=== PATIENT | female | born 1940 | race Native Hawaiian/Other Pacific Islander ===

== ENCOUNTER 2016-11-27 08:09 | Outpatient (CLI) | payer OTHER, BC ==
[~2016-11-27 08:09] MED LIST: DIAZ5TAB20 PO; DULO60CA2 OR; ESTR0.45 PO; LISI10TA11 PO; METO50TA27 PO; NEURONTIN800 MG PO; SIMV10TA PO
== END 2016-11-27 09:00 | disposition home or self-care (01) ==
LOC: LABW 08:09
PROVIDERS: Internal Medicine Cardiovascular Disease
DX: E78.4 Other hyperlipidemia (principal); Z09 Encounter for follow-up examination after completed treatment for conditions other than malignant neoplasm
CPT/HCPCS: 36415; 80061; 80076

== ENCOUNTER 2016-12-01 22:54 | Emergency (ER) | payer OTHER, BC ==
[~2016-12-01] VITALS: Ht 157.5 cm; Wt 74.8 kg
[2016-12-02 00:10] LABS: PLATELET COUNT 225 K/uL (152-353)
[2016-12-02 00:29] LABS: POTASSIUM 4.4 mmol/L (3.6-5.2)
[2016-12-02 00:35] LABS: PARTIAL THROMBOPLASTIN TIME 24.3 SECONDS (24.5-33.6)
[2016-12-02 00:53] VITALS: BP 157/66; TEMP 98
== END 2016-12-02 00:50 | disposition home or self-care (01) ==
LOC: ED 22:54
DX: R07.89 Other chest pain (principal); R06.09 Other forms of dyspnea
CPT/HCPCS: 36415; 80053; 82550; 84484; 85027; 85610; 85730; 86318; 93005; 99283

== ENCOUNTER 2017-08-11 10:06 | Outpatient (CLI) | payer OTHER, BC | END 2017-08-11 19:40 | disposition home or self-care (01) | LOC: MAMMO 10:06 | DX: Z12.31 Encounter for screening mammogram for malignant neoplasm of breast (principal) ==

== ENCOUNTER 2018-03-11 06:56 | Outpatient (CLI) | payer OTHER, BC | END 2018-03-11 19:15 | disposition home or self-care (01) | LOC: LABW 06:56 | PROVIDERS: Internal Medicine Cardiovascular Disease | DX: E78.5 Hyperlipidemia, unspecified (principal); Z09 Encounter for follow-up examination after completed treatment for conditions other than malignant neoplasm | CPT/HCPCS: 36415; 80061 ==

== ENCOUNTER 2018-08-14 07:08 | Outpatient (CLI) | payer OTHER, BC | END 2018-08-14 18:54 | disposition home or self-care (01) | LOC: LABW 07:08 | PROVIDERS: Internal Medicine Cardiovascular Disease | DX: E78.5 Hyperlipidemia, unspecified (principal); Z09 Encounter for follow-up examination after completed treatment for conditions other than malignant neoplasm | CPT/HCPCS: 36415; 80061; 80076 ==

== ENCOUNTER 2018-08-19 14:18 | Outpatient (CLI) | payer OTHER, BC | END 2018-08-19 23:05 | disposition home or self-care (01) | LOC: MAMMO 14:18 | DX: Z12.31 Encounter for screening mammogram for malignant neoplasm of breast (principal) ==

== ENCOUNTER 2018-10-28 08:40 | Outpatient (CLI) | payer OTHER, BC | END 2018-10-28 20:38 | disposition home or self-care (01) | LOC: CT 08:40 | DX: G44.329 Chronic post-traumatic headache, not intractable (principal) ==

== ENCOUNTER 2018-12-24 15:34 | Emergency (ER) | payer OTHER, BC ==
[~2018-12-24] VITALS: Ht 162.6 cm; Wt 74.8 kg
[2018-12-24 15:47] VITALS: BP 153/85; TEMP 98.1
== END 2018-12-24 18:15 | disposition home or self-care (01) ==
LOC: ED 15:34
DX: S00.83XA Contusion of other part of head, initial encounter (principal); S60.212A Contusion of left wrist, initial encounter; S70.02XA Contusion of left hip, initial encounter; W01.198A Fall on same level from slipping, tripping and stumbling with subsequent striking against other object, initial encounter; Y92.091 Bathroom in other non-institutional residence as the place of occurrence of the external cause
CPT/HCPCS: 99283

== ENCOUNTER 2019-02-01 07:12 | Outpatient (CLI) | payer OTHER, BC | END 2019-02-01 22:44 | disposition home or self-care (01) | LOC: LABW 07:12 | PROVIDERS: Internal Medicine Cardiovascular Disease | DX: Z09 Encounter for follow-up examination after completed treatment for conditions other than malignant neoplasm (principal); E78.49 Other hyperlipidemia | CPT/HCPCS: 36415; 80061; 80076 ==

== ENCOUNTER 2019-02-03 08:44 | Outpatient (CLI) | payer OTHER, BC | END 2019-02-03 23:41 | disposition home or self-care (01) | LOC: MRI 08:44 | DX: M47.22 Other spondylosis with radiculopathy, cervical region (principal) ==

== ENCOUNTER 2019-03-29 07:47 | Outpatient (CLI) | payer OTHER, BC | END 2019-03-29 22:35 | disposition home or self-care (01) | LOC: RAD 07:47 | DX: Z13.820 Encounter for screening for osteoporosis (principal); N95.8 Other specified menopausal and perimenopausal disorders ==

== ENCOUNTER 2020-01-11 07:18 | Outpatient (CLI) | payer OTHER, BC | END 2020-01-11 21:23 | disposition home or self-care (01) | LOC: LABW 07:18 | PROVIDERS: Internal Medicine Cardiovascular Disease | DX: E78.49 Other hyperlipidemia (principal) | CPT/HCPCS: 36415; 80061; 80076 ==

== ENCOUNTER 2020-03-26 15:20 | Emergency (ER) | payer OTHER, BC ==
[~2020-03-26] VITALS: Ht 162.6 cm; Wt 77.1 kg
[2020-03-26] MEDS ORDERED: GRALISE300 MG PO (15:46)
[2020-03-26] MEDS ORDERED: FIBER LAXATV625 MG PO (15:47)
[2020-03-26] MEDS ORDERED: PHEN200T3 PO (15:48)
[2020-03-26] MEDS ORDERED: HYDROCHLOROT12.5 M1 PO (15:48)
[2020-03-26] MEDS ORDERED: DICLOFENAC POTA50 MG PO (15:49)
[2020-03-26] MEDS ORDERED: ESOMEPRAZOLE MA40 MG PO (15:50)
[2020-03-26] MEDS ORDERED: RELAFEN DS1000 MG PO (15:51)
[2020-03-26] MEDS ORDERED: SIMV10TA PO (15:51)
[2020-03-26] MEDS ORDERED: TRAMADOL HYDROC50 MG PO (15:52)
[2020-03-26 16:49] LABS: PLATELET COUNT 235 K/uL (152-353)
[2020-03-26 19:30] VITALS: BP 135/48; TEMP 98
== END 2020-03-26 19:45 | disposition home or self-care (01) ==
LOC: ED 15:34
PROVIDERS: Emergency Medicine Emergency Medical Services
PROC: 0T9B70Z Drainage of Bladder with Drainage Device, Via Natural or Artificial Opening (ICD-10-PCS; principal; 2020-03-26)
DX: K59.09 Other constipation (principal); J18.9 Pneumonia, unspecified organism
CPT/HCPCS: 36415; 51702; 80053; 81000; 82272; 83605; 83690; 84484; 85027; 87040; 93005; 96360; 96365; 99284; J0456

== ENCOUNTER 2020-11-21 07:49 | Outpatient (CLI) | payer BC, OTHER ==
[~2020-11-21 07:49] MED LIST changes: +DICLOFENAC POTA50 MG PO; +ESOMEPRAZOLE MA40 MG PO; +FIBER LAXATV625 MG PO; +GRALISE300 MG PO; +HYDROCHLOROT12.5 M1 PO; +PHEN200T3 PO; +RELAFEN DS1000 MG PO; +TRAMADOL HYDROC50 MG PO
== END 2020-11-21 19:40 | disposition home or self-care (01) ==
LOC: LABW 07:49
PROVIDERS: ATTEND Internal Medicine Cardiovascular Disease
DX: E78.49 Other hyperlipidemia (principal); Z09 Encounter for follow-up examination after completed treatment for conditions other than malignant neoplasm
CPT/HCPCS: 36415; 80061; 80076

== ENCOUNTER 2021-07-11 07:02 | Outpatient (CLI) | payer BC, OTHER | END 2021-07-11 19:43 | disposition home or self-care (01) | LOC: LABW 07:02 | PROVIDERS: ATTEND Internal Medicine Cardiovascular Disease | DX: E78.49 Other hyperlipidemia (principal); Z09 Encounter for follow-up examination after completed treatment for conditions other than malignant neoplasm | CPT/HCPCS: 36415; 80061; 80076 ==

== ENCOUNTER 2021-08-10 11:39 | Emergency (ER) | payer BC, OTHER ==
[~2021-08-10] VITALS: Ht 162.6 cm; Wt 77.1 kg
[2021-08-10 11:52] VITALS: TEMP 97.8
[2021-08-10 12:17] LABS: PLATELET COUNT 238 K/uL (152-353)
[2021-08-10 12:29] LABS: POTASSIUM 4.4 mmol/L (3.6-5.2)
[2021-08-10 12:40] LABS: PARTIAL THROMBOPLASTIN TIME 22.3 SECONDS (24.5-33.6)
[2021-08-10 13:15] VITALS: BP 169/72
== END 2021-08-10 13:15 | disposition home or self-care (01) ==
LOC: ED 11:39
PROVIDERS: Hospitalist
DX: K29.70 Gastritis, unspecified, without bleeding (principal); K59.09 Other constipation
CPT/HCPCS: 36415; 80053; 83690; 84484; 85027; 85610; 85730; 93005; 96360; 96375; 99284; J2405; J3490

== ENCOUNTER 2021-08-19 21:10 | Emergency (ER) | payer BC, OTHER ==
[~2021-08-19] VITALS: Ht 162.6 cm; Wt 77.1 kg
[2021-08-19 21:59] LABS: PLATELET COUNT 252 K/uL (152-353)
[2021-08-19 22:05] LABS: POTASSIUM 3.9 mmol/L (3.6-5.2)
[2021-08-19 23:07] VITALS: BP 159/45; TEMP 98.1
== END 2021-08-19 23:07 | disposition home or self-care (01) ==
LOC: ED 21:10
PROVIDERS: Emergency Medicine Emergency Medical Services
DX: N39.0 Urinary tract infection, site not specified (principal)
CPT/HCPCS: 36415; 80053; 81000; 85027; 87086; 87088; 96365; 99284; J0696

== ENCOUNTER 2021-09-17 09:05 | Outpatient (CLI) | payer BC, OTHER | END 2021-09-17 18:47 | disposition home or self-care (01) | LOC: CT 09:05 | PROVIDERS: ATTEND Nurse Practitioner Family | DX: R10.84 Generalized abdominal pain (principal) | CPT/HCPCS: 36415; 82565; 84520; Q9963 ==

== ENCOUNTER 2021-09-20 14:53 | Outpatient (CLI) | payer BC, OTHER ==
[2021-09-20 15:16] LABS: PLATELET COUNT 271 K/uL (152-353)
[2021-09-20 15:24] LABS: POTASSIUM 4.4 mmol/L (3.6-5.2)
== END 2021-09-20 19:24 | disposition home or self-care (01) ==
LOC: LAB 14:53
PROVIDERS: ATTEND Nurse Practitioner
DX: D64.89 Other specified anemias (principal); I10 Essential (primary) hypertension
CPT/HCPCS: 80053; 85027

== ENCOUNTER 2022-02-14 18:49 | Emergency (ER) | payer BC, OTHER ==
[~2022-02-14] VITALS: Ht 162.6 cm; Wt 74.8 kg
[2022-02-14 20:18] LABS: PLATELET COUNT 235 K/uL (152-353)
[2022-02-14 20:29] LABS: POTASSIUM 3.5 mmol/L (3.6-5.2)
[2022-02-14 21:10] VITALS: BP 145/78; TEMP 98.3
== END 2022-02-14 21:10 | disposition home or self-care (01) ==
LOC: ED 18:49
PROVIDERS: Emergency Medicine
DX: I10 Essential (primary) hypertension (principal)
CPT/HCPCS: 36415; 80053; 81002; 81015; 84484; 85027; 93005; 99283

== ENCOUNTER 2022-03-27 13:54 | Emergency (ER) | payer BC, OTHER ==
[~2022-03-27] VITALS: Ht 162.6 cm; Wt 74.8 kg
[2022-03-27 14:04] VITALS: TEMP 97
[2022-03-27 14:52] LABS: PLATELET COUNT 201 K/uL (152-353)
[2022-03-27 17:03] VITALS: BP 169/91
== END 2022-03-27 17:04 | disposition home or self-care (01) ==
LOC: ED 13:54
PROVIDERS: Emergency Medicine
DX: I10 Essential (primary) hypertension (principal)
CPT/HCPCS: 80053; 81002; 84484; 85027; 93005; 99283

== ENCOUNTER 2022-04-11 11:20 | Outpatient (CLI) | payer BC, OTHER | END 2022-04-11 19:22 | disposition home or self-care (01) | LOC: MAMMO 11:20 | PROVIDERS: ATTEND Nurse Practitioner | DX: Z12.31 Encounter for screening mammogram for malignant neoplasm of breast (principal) ==

== ENCOUNTER 2022-05-23 09:36 | Outpatient (CLI) | payer BC, OTHER | END 2022-05-23 21:56 | disposition home or self-care (01) | LOC: CT 09:36 | PROVIDERS: ATTEND Internal Medicine | DX: R51.9 Headache, unspecified (principal); R42 Dizziness and giddiness ==

== ENCOUNTER 2022-07-23 09:00 | Outpatient (CLI) | payer BC, OTHER | END 2022-07-23 18:57 | disposition home or self-care (01) | LOC: RAD 09:00 | PROVIDERS: ATTEND Internal Medicine | DX: M54.2 Cervicalgia (principal); M54.6 Pain in thoracic spine; M54.59 Other low back pain ==

== ENCOUNTER 2022-10-30 07:59 | Outpatient (CLI) | payer BC, OTHER | END 2022-10-30 19:01 | disposition home or self-care (01) | LOC: LABW 07:59 | PROVIDERS: ATTEND Internal Medicine Cardiovascular Disease | DX: E78.49 Other hyperlipidemia (principal) | CPT/HCPCS: 36415; 80061; 80076 ==

== ENCOUNTER 2023-05-05 12:44 | Outpatient (CLI) | payer BC, OTHER | END 2023-05-05 19:16 | disposition home or self-care (01) | LOC: MAMMO 12:44 | PROVIDERS: ATTEND Nurse Practitioner | DX: N64.59 Other signs and symptoms in breast (principal) ==